=== PATIENT | female | born 1990 | race Caucasian/White ===

== ENCOUNTER → 2018-08-03 | Outpatient (CLI) | payer OTHER ==
[~2018-08-03] MED LIST: IBUP800 PO
== END | disposition home or self-care (01) ==
LOC: LAB SHORT 16:33 → LAB 16:33
PROVIDERS: Obstetrics & Gynecology
DX: Z01.419 Encounter for gynecological examination (general) (routine) without abnormal findings (principal)
CPT/HCPCS: G0123

== ENCOUNTER → 2022-02-03 | Outpatient (CLI) | payer OTHER | LOC: LAB SHORT 07:50 → LAB 07:50 | DX: R87.610 Atypical squamous cells of undetermined significance on cytologic smear of cervix (ASC-US) (principal); R87.810 Cervical high risk human papillomavirus (HPV) DNA test positive | CPT/HCPCS: 88305 ==

== ENCOUNTER 2023-03-27 19:03 | Emergency (ER) | payer OTHER ==
[~2023-03-27] VITALS: Ht 162.6 cm; Wt 83.9 kg
[2023-03-27 19:26] VITALS: BP 168/106
[2023-03-27] MEDS ORDERED: Acyclovir 200 MG Cap PO ONE (21:50)
[2023-03-27] MEDS ORDERED: PredniSONE 20 MG Tab PO ONE (21:50)
[2023-03-27] MEDS ORDERED: ACYC400 PO (22:19)
[2023-03-27] MEDS ORDERED: Prednisone20 MG PO (22:19)
== END 2023-03-27 22:03 | disposition home or self-care (01) ==
LOC: ER 19:03
DX: G51.0 Bell's palsy (principal); F17.200 Nicotine dependence, unspecified, uncomplicated
CPT/HCPCS: 99283; A9270; J7512